=== PATIENT | female | born 1990 | race Caucasian/White ===

== ENCOUNTER → 2019-07-06 | Outpatient (CLI) | payer OTHER ==
[~2019-07-06] MED LIST: AMOX500 PO; BUSP10 PO; CEPH500 PO; HYDACE5; HYDACE5 PO; IBUP400; INSLIS75I; LORA2 PO; NAPR500 PO; PENVK500 PO; PROM25 PO; RXAMOX500 PO; SULTRIDS PO; Ultram50 MG PO; Valium5 MG PO
== END | disposition home or self-care (01) ==
LOC: LAB 19:40 → LAB SHORT 19:40
PROVIDERS: Physician Assistant Medical
DX: R10.2 Pelvic and perineal pain (principal)
CPT/HCPCS: G0145

== ENCOUNTER → 2019-10-19 | Outpatient (CLI) | payer OTHER ==
[2019-10-22 10:07] LABS: CHLAMYDIA BY NAA Negative (Negative); GONOCOCCUS BY NAA Negative (Negative); TRICH VAG BY NAA Negative (Negative)
== END ==
LOC: LAB 17:24 → LAB SHORT 17:24
PROVIDERS: Registered Nurse Community Health
DX: Z20.2 Contact with and (suspected) exposure to infections with a predominantly sexual mode of transmission (principal)
CPT/HCPCS: 87491; 87591; 87661

== ENCOUNTER 2021-02-21 04:43 | Emergency (ER) | payer OTHER ==
[~2021-02-21] VITALS: Ht 165.1 cm; Wt 101.2 kg
[2021-02-21] MEDS ORDERED: PRENATAL TABLE1 EAC2 PO (04:57)
[2021-02-21 06:41] LABS: Source, Urine Clean Catch
[2021-02-21 06:46] LABS: BASOPHILS ABSOLUTE AUTO 0.03 K/mm3 (0.00-0.23); BASOPHILS PERCENT AUTO 0 % (0-2); EOSINOPHILS ABSOLUTE AUTO 0.11 K/mm3 (0.00-0.68); EOSINOPHILS PERCENT AUTO 1 % (0-6); Hematocrit 34.7 % (33.0-51.0); Hemoglobin 11.6 g/dL (11.5-16.0); IMMATURE GRAN ABSOLUTE AUTO 0.16 K/mm3 (0.00-0.10); IMMATURE GRAN PERCENT AUTO 2 % (0-1); LYMPHOCYTES ABSOLUTE AUTO 1.72 K/mm3 (0.84-5.20); LYMPHOCYTES PERCENT AUTO 17 % (21-46); MONOCYTES ABSOLUTE AUTO 0.55 K/mm3 (0.16-1.47); MONOCYTES PERCENT AUTO 5 % (4-13); Mean Corpuscular HGB 30.1 pg (26.0-34.0); Mean Corpuscular HGB Conc 33.4 g/dL (31.5-36.5); Mean Corpuscular Volume 90 fL (80-100); Mean Platelet Volume 10.2 fL (9.1-12.4); NEUTROPHILS ABSOLUTE AUTO 7.78 K/mm3 (1.96-9.15); NEUTROPHILS PERCENT AUTO 75 % (41-73); Platelet Count 207 K/mm3 (150-400); RDW Coefficient Variation 13.6 % (11.7-14.2); RDW Standard Deviation 44.5 fL (35.1-46.3); Red Blood Cell Count 3.86 M/mm3 (3.80-5.20); White Blood Cell Count 10.35 K/mm3 (4.00-11.30)
[2021-02-21 06:49] LABS: Appearance, Urine Clear (Clear); Bilirubin, Urine Neg (Neg); Blood, Urine Neg (Neg); Color, Urine Yellow (P-Yellow); Glucose Qualitative, Urine Neg (Neg); Ketones, Urine Neg (Neg); Leukocyte Esterase, Urine 1+ (Neg); Nitrite, Urine Neg (Neg); Protein, Urine Neg (Neg); Urobilinogen, Urine NORM (Normal)
[2021-02-21 07:05] LABS: Squamous Epithelial Cells Mod /hpf (Few)
[2021-02-21 07:06] LABS: Red Blood Cells, Urine 0-2 /hpf (0-2)
[2021-02-21 07:07] LABS: Bacteria Mod /hpf
[2021-02-21 07:07] LABS: Alanine Aminotransfer (ALT/SGP 14 U/L (12-78); Albumin, Blood 2.8 g/dL (3.4-5.0); Albumin/Globulin Ratio 0.7 (0.8-1.8); Alk Phos 92 U/L (50-136); Anion Gap 8 mmol/L (6-16); Aspartate Aminotrans (AST/SGOT 11 U/L (12-37); Bilirubin, Total 0.2 mg/dL (0.1-1.0); Blood Urea Nitrogen 7 mg/dL (8-24); Bun/Creatinine Ratio 12.9 (12.0-20.0); CO2, Blood 22 mmol/L (21-32); Calcium, Blood 8.7 mg/dL (8.5-10.1); Chloride, Blood 106 mmol/L (98-108); Creatinine, Blood 0.54 mg/dL (0.40-1.00); Globulin, Blood 3.9 g/dL (2.2-4.0); Glomerular Filtration Rate >60 (60-); Glucose, Blood 108 mg/dL (70-99); Potassium, Blood 3.7 mmol/L (3.5-5.5); Sodium, Blood 136 mmol/L (136-145); Total Protein, Blood 6.7 g/dL (6.4-8.2)
== END 2021-02-21 07:37 | disposition home or self-care (01) ==
LOC: ER 04:43
PROVIDERS: Emergency Medicine
DX: O99.891 Other specified diseases and conditions complicating pregnancy (principal); R20.2 Paresthesia of skin; Z3A.29 29 weeks gestation of pregnancy
CPT/HCPCS: 36415; 80053; 81001; 82950; 85025; 87086; 99284

== ENCOUNTER → 2021-04-15 | Outpatient (CLI) | payer OTHER ==
[~2021-04-15] MED LIST changes: +DOCU100 PO; +IBU800 MG PO; +PRENATAL TABLE1 EAC2 PO; +Percocet 5-3251 EACH PO
== END | disposition home or self-care (01) ==
LOC: LAB 15:00 → LAB SHORT 15:00
DX: Z34.83 Encounter for supervision of other normal pregnancy, third trimester (principal); Z3A.36 36 weeks gestation of pregnancy
CPT/HCPCS: 87081; 87150

== ENCOUNTER 2021-05-02 08:21 | Inpatient (IN) | payer OTHER ==
[~2021-05-02] VITALS: Ht 165.1 cm; Wt 105.0 kg
[~2021-05-02 08:21] MED LIST changes: -DOCU100 PO; -IBU800 MG PO; -Percocet 5-3251 EACH PO
[2021-05-02 08:39] LABS: BASOPHILS ABSOLUTE AUTO 0.05 K/mm3 (0.00-0.23); BASOPHILS PERCENT AUTO 0 % (0-2); EOSINOPHILS ABSOLUTE AUTO 0.11 K/mm3 (0.00-0.68); EOSINOPHILS PERCENT AUTO 1 % (0-6); Hematocrit 41.9 % (33.0-51.0); Hemoglobin 14.4 g/dL (11.5-16.0); IMMATURE GRAN ABSOLUTE AUTO 0.13 K/mm3 (0.00-0.10); IMMATURE GRAN PERCENT AUTO 1 % (0-1); LYMPHOCYTES ABSOLUTE AUTO 2.75 K/mm3 (0.84-5.20); LYMPHOCYTES PERCENT AUTO 17 % (21-46); MONOCYTES ABSOLUTE AUTO 1.04 K/mm3 (0.16-1.47); MONOCYTES PERCENT AUTO 6 % (4-13); Mean Corpuscular HGB 29.8 pg (26.0-34.0); Mean Corpuscular HGB Conc 34.4 g/dL (31.5-36.5); Mean Corpuscular Volume 87 fL (80-100); Mean Platelet Volume 10.6 fL (9.1-12.4); NEUTROPHILS ABSOLUTE AUTO 12.17 K/mm3 (1.96-9.15); NEUTROPHILS PERCENT AUTO 75 % (41-73); Platelet Count 238 K/mm3 (150-400); RDW Coefficient Variation 13.7 % (11.7-14.2); RDW Standard Deviation 43.3 fL (35.1-46.3); Red Blood Cell Count 4.84 M/mm3 (3.80-5.20); White Blood Cell Count 16.25 K/mm3 (4.00-11.30)
--- NOTE | 2021-05-02 10:31 | NUR ---
05/02/21 1031 Becca Dixon PRIMARY SECTION FOR BREECH. VIABLE BABY BOY DELIVERED AT 1003. APGARS 9/9. WEIGHT 4710 GRAMS. LENGTH 22 INCHES. HEAD 15 INCHES. CHEST 14.5 INCHES
[2021-05-03 05:57] LABS: BASOPHILS ABSOLUTE AUTO 0.03 K/mm3 (0.00-0.23); BASOPHILS PERCENT AUTO 0 % (0-2); EOSINOPHILS ABSOLUTE AUTO 0.12 K/mm3 (0.00-0.68); EOSINOPHILS PERCENT AUTO 1 % (0-6); Hematocrit 32.6 % (33.0-51.0); Hemoglobin 10.8 g/dL (11.5-16.0); IMMATURE GRAN ABSOLUTE AUTO 0.08 K/mm3 (0.00-0.10); IMMATURE GRAN PERCENT AUTO 1 % (0-1); LYMPHOCYTES ABSOLUTE AUTO 1.84 K/mm3 (0.84-5.20); LYMPHOCYTES PERCENT AUTO 19 % (21-46); MONOCYTES ABSOLUTE AUTO 0.69 K/mm3 (0.16-1.47); MONOCYTES PERCENT AUTO 7 % (4-13); Mean Corpuscular HGB 29.7 pg (26.0-34.0); Mean Corpuscular HGB Conc 33.1 g/dL (31.5-36.5); Mean Corpuscular Volume 90 fL (80-100); Mean Platelet Volume 10.5 fL (9.1-12.4); NEUTROPHILS ABSOLUTE AUTO 7.03 K/mm3 (1.96-9.15); NEUTROPHILS PERCENT AUTO 72 % (41-73); Platelet Count 166 K/mm3 (150-400); RDW Coefficient Variation 14.3 % (11.7-14.2); RDW Standard Deviation 46.6 fL (35.1-46.3); Red Blood Cell Count 3.64 M/mm3 (3.80-5.20); White Blood Cell Count 9.79 K/mm3 (4.00-11.30)
--- NOTE | 2021-05-04 03:04 | NUR ---
RESPIRATORY NOTE: PT STATES THAT SHE FELT LIKE SHE NEED TO COUGH BUT CAN'T CLEAR UP AND FLEM. SHE STATES THAT IT FEELS LIKE SHE HAS THICK MUCUS THAT'S SHE CAN'T GET OUT. LUNGS CLEAR IN ALL LOBES. PT ENCOURGED TO TAKE A DEEP BREATH AND COUGH USING PILLOW TO GUARD ABDOMEN. PT STATES THAT ITS NOT WORKING AND IT TOO PAINFUL. RN OFFERED PAIN MEDICATION BUT PT DECLINED. RN INSTRUCTED PT TO USE INSINTIVE SPIROMETER. ALSO ORDER OBTAINED FOR FLUTTER VAULVE AND MUCINEX. PT STATES THAT SHE IS ABLE TO COUGH UP SMALL AMOUNTS BUT NOT CLEAR THE MUCUS ALL THE WAY.
[2021-05-04] MEDS ORDERED: IBU800 MG PO (11:06)
[2021-05-04] MEDS ORDERED: Percocet 5-3251 EACH PO (11:07)
[2021-05-04] MEDS ORDERED: DOCU100 PO (11:07)
--- NOTE | 2021-05-04 11:21 | NUR ---
PT AND ARE DC'D HOME WITH WRITTEN RX AND DISCHARGE INSTRUCTIONS. BABY BANDS MATCHED AND PARENTS ACKNOWLEDGE CORRECT BABY.
== END 2021-05-04 11:30 | disposition home or self-care (01) | DRG 788 ==
LOC: BC 08:21
PROVIDERS: ADMIT Obstetrics & Gynecology
PROC: 10D00Z1 Extraction of Products of Conception, Low, Open Approach (ICD-10-PCS; principal; 2021-05-02 09:30)
DX: O32.8XX0 Maternal care for other malpresentation of fetus, not applicable or unspecified (principal); Z3A.39 39 weeks gestation of pregnancy; Z37.0 Single live birth; O99.214 Obesity complicating childbirth; E66.9 Obesity, unspecified; O99.344 Other mental disorders complicating childbirth; O99.824 Streptococcus B carrier state complicating childbirth; F53.1 Puerperal psychosis; F32.9 Major depressive disorder, single episode, unspecified; F41.9 Anxiety disorder, unspecified; Z14.1 Cystic fibrosis carrier; Z20.822 Contact with and (suspected) exposure to COVID-19
CPT/HCPCS: 36415; 85025; 86850; 86900; 86901; A9270; J0694; J1885; J2370; J2405; J2590; J2765; J3010; J7120; U0004

== ENCOUNTER 2021-06-15 07:05 | Inpatient (IN) | payer OTHER ==
[~2021-06-15] VITALS: Ht 165.1 cm; Wt 94.8 kg
[~2021-06-15 07:05] MED LIST changes: +DOCU100 PO; +IBU800 MG PO; +Percocet 5-3251 EACH PO
[2021-06-15] MEDS ORDERED: ASCO500 PO (07:19)
[2021-06-15 07:47] LABS: BASOPHILS ABSOLUTE AUTO 0.03 K/mm3 (0.00-0.23); BASOPHILS PERCENT AUTO 0 % (0-2); EOSINOPHILS ABSOLUTE AUTO 0.13 K/mm3 (0.00-0.68); EOSINOPHILS PERCENT AUTO 2 % (0-6); Hematocrit 41.9 % (33.0-51.0); Hemoglobin 13.7 g/dL (11.5-16.0); IMMATURE GRAN ABSOLUTE AUTO 0.03 K/mm3 (0.00-0.10); IMMATURE GRAN PERCENT AUTO 0 % (0-1); LYMPHOCYTES ABSOLUTE AUTO 2.36 K/mm3 (0.84-5.20); LYMPHOCYTES PERCENT AUTO 27 % (21-46); MONOCYTES ABSOLUTE AUTO 0.42 K/mm3 (0.16-1.47); MONOCYTES PERCENT AUTO 5 % (4-13); Mean Corpuscular HGB 28.7 pg (26.0-34.0); Mean Corpuscular HGB Conc 32.7 g/dL (31.5-36.5); Mean Corpuscular Volume 88 fL (80-100); Mean Platelet Volume 9.8 fL (9.1-12.4); NEUTROPHILS ABSOLUTE AUTO 5.88 K/mm3 (1.96-9.15); NEUTROPHILS PERCENT AUTO 67 % (41-73); Platelet Count 264 K/mm3 (150-400); RDW Coefficient Variation 12.7 % (11.7-14.2); RDW Standard Deviation 40.9 fL (35.1-46.3); Red Blood Cell Count 4.78 M/mm3 (3.80-5.20); White Blood Cell Count 8.85 K/mm3 (4.00-11.30)
[2021-06-15 07:56] LABS: Source, Urine Clean Catch
[2021-06-15 08:10] LABS: Leukocyte Esterase, Urine 2+ (Neg); Nitrite, Urine Neg (Neg); Protein, Urine Neg (Neg); Specific Gravity, Urine 1.015 (1.003-1.022)
[2021-06-15 08:11] LABS: Appearance, Urine Clear (Clear); Bilirubin, Urine Neg (Neg); Blood, Urine 5+ (Neg); Color, Urine Yellow (P-Yellow); Glucose Qualitative, Urine Neg (Neg); Ketones, Urine Neg (Neg); Urobilinogen, Urine NORM (Normal)
[2021-06-15 08:12] LABS: Alanine Aminotransfer (ALT/SGP 114 U/L (12-78); Albumin, Blood 3.7 g/dL (3.4-5.0); Albumin/Globulin Ratio 0.8 (0.8-1.8); Alk Phos 137 U/L (50-136); Anion Gap 5 mmol/L (6-16); Aspartate Aminotrans (AST/SGOT 120 U/L (12-37); Bilirubin, Total 0.7 mg/dL (0.1-1.0); Blood Urea Nitrogen 18 mg/dL (8-24); CO2, Blood 29 mmol/L (21-32); Calcium, Blood 9.5 mg/dL (8.5-10.1); Chloride, Blood 104 mmol/L (98-108); Creatinine, Blood 0.86 mg/dL (0.40-1.00); Globulin, Blood 4.6 g/dL (2.2-4.0); Glomerular Filtration Rate >60 (60-); Glucose, Blood 108 mg/dL (70-99); Potassium, Blood 4.1 mmol/L (3.5-5.5); Sodium, Blood 138 mmol/L (136-145); Total Protein, Blood 8.3 g/dL (6.4-8.2)
[2021-06-15 08:13] LABS: Bacteria Few /hpf; Squamous Epithelial Cells Mod /hpf (Few)
[2021-06-15 09:53] LABS: SARS-Cov-2 (COVID-19) PCR, MMC NEGATIVE (NEGATIVE)
--- NOTE | 2021-06-15 11:48 | NUR ---
06/15/21 1148 Cristy Law PT ON SCHEDULED ANTIBIOTICS.
--- NOTE | 2021-06-15 14:34 | NUR ---
PT ARRIVED TO THE ROOM AT APPROXIMATELY 1246. PT AWAKE AND ORIENTED. DENIES PAIN AND NAUSEA. VSS. WILL MONITOR UNTIL REPORT TO ONCOMING RN.
[2021-06-15] MEDS ORDERED: OXYC10TA19 PO (16:16)
--- NOTE | 2021-06-15 17:00 | NUR ---
DISCHARGE PT PROVIDED WITH WRITTEN AND VERBAL DISCHARGE INSTRUCTIONS, SHE VERBALIZED UNDERSTANDING. PT PROVIDED WITH PRESCRIPTION FOR PAIN MEDICATION. PT GIVEN ABD BINDER FOR COMFORT. PAIN MANAGED, ABLE TO AMBULATE AND TOLERATING PO PRIOR TO DISCHARGE. PT AMBULATED OUT WITHOUT ASSISTANCE.
== END 2021-06-15 17:02 | disposition home or self-care (01) | DRG 419 ==
LOC: ER 07:05 → SURS 08:50
PROVIDERS: Emergency Medicine; ADMIT Surgery
PROC: 0FT44ZZ Resection of Gallbladder, Percutaneous Endoscopic Approach (ICD-10-PCS; principal; 2021-06-15 11:15)
DX: K80.10 Calculus of gallbladder with chronic cholecystitis without obstruction (principal); Z20.822 Contact with and (suspected) exposure to COVID-19; K21.9 Gastro-esophageal reflux disease without esophagitis; E66.9 Obesity, unspecified; Z87.891 Personal history of nicotine dependence; Z68.34 Body mass index [BMI] 34.0-34.9, adult
CPT/HCPCS: 36415; 76705; 80053; 81001; 81025; 83690; 85025; 87086; 88304; 96374; 96375; 99285-25; A9270; J1100; J1170; J2250; J2405; J2543; J2704; J3010; J7030; J7120; U0004

== ENCOUNTER 2021-08-08 15:10 | Emergency (ER) | payer OTHER ==
[~2021-08-08] VITALS: Ht 195.6 cm; Wt 95.2 kg
[~2021-08-08 15:10] MED LIST changes: +ASCO500 PO; +OXYC10TA19 PO
[2021-08-08] MEDS ORDERED: IBUP400 PO (15:49)
[2021-08-08] MEDS ORDERED: CYCL10 PO (15:49)
== END 2021-08-08 16:11 | disposition home or self-care (01) ==
LOC: ER 15:10
DX: R20.2 Paresthesia of skin (principal); Z87.891 Personal history of nicotine dependence
CPT/HCPCS: 99283; A9270

== ENCOUNTER 2021-08-09 14:31 | Emergency (ER) | payer OTHER ==
[~2021-08-09] VITALS: Ht 165.1 cm; Wt 95.2 kg
[~2021-08-09 14:31] MED LIST changes: +CYCL10 PO; +IBUP400 PO
== END 2021-08-09 18:55 | disposition home or self-care (01) ==
LOC: ER 14:31
DX: G62.9 Polyneuropathy, unspecified (principal); Z87.891 Personal history of nicotine dependence
CPT/HCPCS: 72131; 81025; 99284-25

== ENCOUNTER 2022-07-06 17:55 | Emergency (ER) | payer OTHER ==
[~2022-07-06] VITALS: Ht 165.1 cm; Wt 99.8 kg
[2022-07-06 18:36] LABS: BASOPHILS ABSOLUTE AUTO 0.04 K/mm3 (0.00-0.23); BASOPHILS PERCENT AUTO 0 % (0-2); EOSINOPHILS ABSOLUTE AUTO 0.16 K/mm3 (0.00-0.68); EOSINOPHILS PERCENT AUTO 2 % (0-6); Hematocrit 41.9 % (33.0-51.0); Hemoglobin 14.3 g/dL (11.5-16.0); IMMATURE GRAN ABSOLUTE AUTO 0.04 K/mm3 (0.00-0.10); IMMATURE GRAN PERCENT AUTO 0 % (0-1); LYMPHOCYTES ABSOLUTE AUTO 3.73 K/mm3 (0.84-5.20); LYMPHOCYTES PERCENT AUTO 39 % (21-46); MONOCYTES PERCENT AUTO 5 % (4-13); Mean Corpuscular HGB 29.9 pg (26.0-34.0); Mean Corpuscular HGB Conc 34.1 g/dL (31.5-36.5); Mean Corpuscular Volume 88 fL (80-100); Mean Platelet Volume 9.5 fL (9.1-12.4); NEUTROPHILS ABSOLUTE AUTO 5.19 K/mm3 (1.96-9.15); NEUTROPHILS PERCENT AUTO 54 % (41-73); Platelet Count 349 K/mm3 (150-400); RDW Coefficient Variation 12.5 % (11.7-14.2); Red Blood Cell Count 4.79 M/mm3 (3.80-5.20); White Blood Cell Count 9.66 K/mm3 (4.00-11.30)
[2022-07-06 18:57] LABS: Albumin/Globulin Ratio 1.1 (0.8-1.8); Bilirubin, Total 0.3 mg/dL (0.1-1.0); Bun/Creatinine Ratio 16.1 (12.0-20.0); Calcium, Blood 9.1 mg/dL (8.5-10.1); Creatinine, Blood 0.81 mg/dL (0.40-1.00); Globulin, Blood 3.7 g/dL (2.2-4.0); Potassium, Blood 3.6 mmol/L (3.5-5.5); Total Protein, Blood 7.7 g/dL (6.4-8.2)
== END 2022-07-06 19:28 | disposition left against medical advice (07) ==
LOC: ER 17:55
PROVIDERS: Student in an Organized Health Care Education/Training Program
DX: Z53.21 Procedure and treatment not carried out due to patient leaving prior to being seen by health care provider (principal)
CPT/HCPCS: 36415; 71045; 80053; 84484; 85025; 93005; 93010

== ENCOUNTER 2023-08-13 02:48 | Day surgery (SDC) | payer OTHER ==
[2023-08-13] VITALS (7 sets, daily range): BP systolic 108–150; BP diastolic 73–100
[2023-08-13] MEDS ORDERED: LORA.5 PO (08:03)
[2023-08-13] MEDS ORDERED: BACL10 PO (08:03)
[2023-08-13] MEDS ORDERED: GABA300 (08:03)
[2023-08-13] MEDS ORDERED: THERA-D2000 UNIT PO (08:03)
[2023-08-13] MEDS ORDERED: HAIR, SKIN AND1 EAC3 PO (08:04)
== END 2023-08-13 11:23 | disposition home or self-care (01) ==
LOC: ATC 02:48
DX: G35 Multiple sclerosis (principal)
CPT/HCPCS: 96365; 96366; 96375; A9270; J2350; J2930; J7050

== ENCOUNTER 2023-08-28 03:55 | Day surgery (SDC) | payer OTHER ==
[2023-08-28] VITALS (7 sets, daily range): BP systolic 125–145; BP diastolic 69–94
[~2023-08-28 03:55] MED LIST changes: +BACL10 PO; +GABA300; +HAIR, SKIN AND1 EAC3 PO; +LORA.5 PO; +THERA-D2000 UNIT PO
--- NOTE | 2023-08-28 09:44 | NUR ---
PT REPORTS AFTER LAST INFUSION HER BODY WAS FLUSHED AND WARM LASTING ONE DAY. PROVIDER IS AWARE OF THIS AND ASKED PT TO NOTIFY [facility] STAFF.
== END 2023-08-28 12:59 | disposition home or self-care (01) ==
LOC: ATC 03:55
DX: G35 Multiple sclerosis (principal)
CPT/HCPCS: 96365; 96366; 96375; A9270; J2350; J2930; J7050

== ENCOUNTER → 2023-09-17 | Outpatient (CLI) | payer OTHER ==
[2023-09-17 15:55] LABS: BASOPHILS ABSOLUTE AUTO 0.04 K/mm3 (0.00-0.23); BASOPHILS PERCENT AUTO 1 % (0-2); EOSINOPHILS ABSOLUTE AUTO 0.13 K/mm3 (0.00-0.68); EOSINOPHILS PERCENT AUTO 2 % (0-6); Hematocrit 42.1 % (33.0-51.0); Hemoglobin 14.3 g/dL (11.5-16.0); IMMATURE GRAN ABSOLUTE AUTO 0.06 K/mm3 (0.00-0.10); IMMATURE GRAN PERCENT AUTO 1 % (0-1); LYMPHOCYTES ABSOLUTE AUTO 2.29 K/mm3 (0.84-5.20); LYMPHOCYTES PERCENT AUTO 26 % (21-46); MONOCYTES ABSOLUTE AUTO 0.47 K/mm3 (0.16-1.47); MONOCYTES PERCENT AUTO 5 % (4-13); Mean Corpuscular HGB 30.6 pg (26.0-34.0); Mean Corpuscular Volume 90 fL (80-100); Mean Platelet Volume 11.9 fL (9.1-12.4); NEUTROPHILS ABSOLUTE AUTO 5.83 K/mm3 (1.96-9.15); NEUTROPHILS PERCENT AUTO 66 % (41-73); Platelet Count 269 K/mm3 (150-400); RDW Coefficient Variation 13.2 % (11.7-14.2); RDW Standard Deviation 43.8 fL (35.1-46.3); Red Blood Cell Count 4.67 M/mm3 (3.80-5.20); White Blood Cell Count 8.82 K/mm3 (4.00-11.30)
[2023-09-17 17:09] LABS: CHOL/HDL RATIO 4.7; Cholesterol 236 mg/dL (50-200); HDL Cholesterol 50 mg/dL (>39); LDL/HDL RATIO 2.6; Low Density Lipoprotein Chol 130 mg/dL (0-110); Triglycerides 280 mg/dL (30-140); Very Low Density Lipoprot Chol 56 mg/dL (6-28)
[2023-09-20 05:11] LABS: HEMOGLOBIN A1C 5.3 % (4.8-5.6)
[2023-09-20 08:11] LABS: A/G RATIO 1.6 (1.2-2.2); BILIRUBIN, TOTAL 0.4 mg/dL (0.0-1.2); CALCIUM, SERUM 9.6 mg/dL (8.7-10.2); CREATININE, SERUM 0.82 mg/dL (0.57-1.00); GLOBULIN, TOTAL 2.9 g/dL (1.5-4.5); POTASSIUM, SERUM 4.5 mmol/L (3.5-5.2); PROTEIN, TOTAL, SERUM 7.6 g/dL (6.0-8.5)
== END | disposition home or self-care (01) ==
LOC: LAB 14:13 → LAB SHORT 14:13
PROVIDERS: Family Medicine
DX: Z51.81 Encounter for therapeutic drug level monitoring (principal); Z79.899 Other long term (current) drug therapy
CPT/HCPCS: 80053; 80061; 82306; 83036; 84443; 85025

== ENCOUNTER 2024-02-26 06:25 | Day surgery (SDC) | payer OTHER ==
[~2024-02-26 06:25] MED LIST changes: +OCRELIZUMAB 600 MG in NS 500 ML IV SCH
[2024-02-26] MEDS ORDERED: MethylPREDNISolone Sod Succ 125 MG Vial IV SCH (06:40)
[2024-02-26] MEDS ORDERED: Acetaminophen 325 MG TABLET PO SCH (06:40)
[2024-02-26] MEDS ORDERED: DiphenhydrAMINE HCL 25 MG Cap PO SCH (06:40)
[2024-02-26 07:40] VITALS: BP 139/80
[2024-02-26 08:55] VITALS: BP 129/61
[2024-02-26 09:25] VITALS: BP 138/90
[2024-02-26 09:56] VITALS: BP 116/93
[2024-02-26 10:25] VITALS: BP 127/68
[2024-02-26] MEDS ORDERED: DiphenhydrAMINE HCl 50 MG/ML 1ML Vial ONE (10:27)
[2024-02-26] MEDS ORDERED: DiphenhydrAMINE HCl 50 MG/ML 1ML Vial IV SCH (10:30)
--- NOTE | 2024-02-26 10:42 | NUR ---
1025: PT C/O ITCHY EARS, SNEEZING AND SOME NUMBNESS TO HER THROAT. "I FEEL LIKE I'M GETTING A COLD ALL OF THE SUDDEN." INFUSION STOPPED. VS TAKEN, SEE EMR. 1037: BENEDRYL 25 MG IV DILUTED WITH NS AND GIVEN. PT REPORTED THAT HER LEFT FOREARM IS SORE AFTER BENEDRYL GIVEN. WRAPPED WITH WARM BLANKET ADN PT STATES RELIEF. 1040: SNEEZING STOPPED AND PT REPORTS FEELING BETTER. INFUSION RESTARTED AT THE PREVIOUS RATE PER PT REQUEST.
== END 2024-02-26 12:17 | disposition home or self-care (01) ==
LOC: ATC 06:25
DX: G35 Multiple sclerosis (principal)
CPT/HCPCS: 96365; 96366; 96375; A9270; J1200; J2350; J2919; J7040

== ENCOUNTER → 2024-03-23 | Outpatient (CLI) | payer OTHER ==
[~2024-03-23] MED LIST changes: -OCRELIZUMAB 600 MG in NS 500 ML IV SCH
[2024-03-26 09:30] LABS: APTIMA MEDIA TYPE Urine; C. TRACHOMATIS BY TMA Negative (Negative); N. GONORRHOEAE BY TMA Negative (Negative); SPECIMEN SOURCE Urine
== END ==
LOC: LAB 18:14 → LAB SHORT 18:14
PROVIDERS: Family Medicine
DX: O09.521 Supervision of elderly multigravida, first trimester (principal); Z3A.01 Less than 8 weeks gestation of pregnancy
CPT/HCPCS: 87086; 87491; 87591

== ENCOUNTER → 2024-05-12 | Outpatient (CLI) | payer OTHER ==
[2024-05-12 14:49] LABS: BASOPHILS ABSOLUTE AUTO 0.04 K/mm3 (0.00-0.23); BASOPHILS PERCENT AUTO 0 % (0-2); EOSINOPHILS ABSOLUTE AUTO 0.12 K/mm3 (0.00-0.68); EOSINOPHILS PERCENT AUTO 1 % (0-6); Hematocrit 38.2 % (33.0-51.0); IMMATURE GRAN ABSOLUTE AUTO 0.06 K/mm3 (0.00-0.10); IMMATURE GRAN PERCENT AUTO 1 % (0-1); LYMPHOCYTES ABSOLUTE AUTO 2.04 K/mm3 (0.84-5.20); LYMPHOCYTES PERCENT AUTO 19 % (21-46); MONOCYTES ABSOLUTE AUTO 0.65 K/mm3 (0.16-1.47); MONOCYTES PERCENT AUTO 6 % (4-13); Mean Corpuscular Volume 88 fL (80-100); Mean Platelet Volume 11.3 fL (9.1-12.4); NEUTROPHILS ABSOLUTE AUTO 7.97 K/mm3 (1.96-9.15); NEUTROPHILS PERCENT AUTO 73 % (41-73); Platelet Count 271 K/mm3 (150-400); RDW Standard Deviation 42.1 fL (35.1-46.3); Red Blood Cell Count 4.33 M/mm3 (3.80-5.20); White Blood Cell Count 10.88 K/mm3 (4.00-11.30)
[2024-05-14 05:36] LABS: HSV 1 GLYCOPROTEIN G AB, IGG 0.16 IV (<=0.89); HSV 2 GLYCOPROTEIN G AB, IGG 0.09 IV (<=0.89)
[2024-05-14 09:16] LABS: HIV 1,2 COMBO ANTIGEN/ANTIBODY Negative (Negative)
[2024-05-14 13:10] LABS: HEPATITIS B SURFACE ANTIGEN Negative (Negative)
== END ==
LOC: LAB 13:27 → LAB SHORT 13:27
PROVIDERS: Family Medicine
DX: O09.512 Supervision of elderly primigravida, second trimester (principal); Z3A.13 13 weeks gestation of pregnancy
CPT/HCPCS: 84443; 86695; 86696; 87340; 87389

== ENCOUNTER → 2024-08-24 | Outpatient (CLI) | payer OTHER ==
[2024-08-24 13:03] LABS: BASOPHILS ABSOLUTE AUTO 0.03 K/mm3 (0.00-0.23); BASOPHILS PERCENT AUTO 0 % (0-2); EOSINOPHILS ABSOLUTE AUTO 0.11 K/mm3 (0.00-0.68); EOSINOPHILS PERCENT AUTO 1 % (0-6); Hematocrit 36.8 % (33.0-51.0); IMMATURE GRAN ABSOLUTE AUTO 0.12 K/mm3 (0.00-0.10); IMMATURE GRAN PERCENT AUTO 1 % (0-1); LYMPHOCYTES ABSOLUTE AUTO 1.88 K/mm3 (0.84-5.20); LYMPHOCYTES PERCENT AUTO 17 % (21-46); MONOCYTES ABSOLUTE AUTO 0.46 K/mm3 (0.16-1.47); MONOCYTES PERCENT AUTO 4 % (4-13); Mean Corpuscular HGB 30.5 pg (26.0-34.0); Mean Corpuscular HGB Conc 32.6 g/dL (31.5-36.5); Mean Corpuscular Volume 94 fL (80-100); Mean Platelet Volume 10.8 fL (9.1-12.4); NEUTROPHILS ABSOLUTE AUTO 8.21 K/mm3 (1.96-9.15); NEUTROPHILS PERCENT AUTO 76 % (41-73); Platelet Count 216 K/mm3 (150-400); RDW Coefficient Variation 13.5 % (11.7-14.2); RDW Standard Deviation 46.5 fL (35.1-46.3); Red Blood Cell Count 3.93 M/mm3 (3.80-5.20); White Blood Cell Count 10.81 K/mm3 (4.00-11.30)
== END | disposition home or self-care (01) ==
LOC: LAB 10:00 → LAB SHORT 10:00
PROVIDERS: Family Medicine
DX: O09.511 Supervision of elderly primigravida, first trimester (principal)
CPT/HCPCS: 85025

== ENCOUNTER → 2024-08-25 | Outpatient (CLI) | payer OTHER | LOC: LAB 17:45 → LAB SHORT 17:45 | DX: O09.513 Supervision of elderly primigravida, third trimester (principal); Z3A.00 Weeks of gestation of pregnancy not specified | CPT/HCPCS: 87086 ==

== ENCOUNTER → 2024-09-22 | Outpatient (CLI) | payer OTHER ==
[2024-09-22 18:25] LABS: BASOPHILS ABSOLUTE AUTO 0.02 K/mm3 (0.00-0.23); BASOPHILS PERCENT AUTO 0 % (0-2); EOSINOPHILS ABSOLUTE AUTO 0.11 K/mm3 (0.00-0.68); EOSINOPHILS PERCENT AUTO 1 % (0-6); Hematocrit 36.8 % (33.0-51.0); Hemoglobin 12.4 g/dL (11.5-16.0); IMMATURE GRAN ABSOLUTE AUTO 0.15 K/mm3 (0.00-0.10); IMMATURE GRAN PERCENT AUTO 1 % (0-1); LYMPHOCYTES ABSOLUTE AUTO 1.72 K/mm3 (0.84-5.20); LYMPHOCYTES PERCENT AUTO 16 % (21-46); MONOCYTES ABSOLUTE AUTO 0.81 K/mm3 (0.16-1.47); MONOCYTES PERCENT AUTO 7 % (4-13); Mean Corpuscular HGB 30.5 pg (26.0-34.0); Mean Corpuscular HGB Conc 33.7 g/dL (31.5-36.5); Mean Corpuscular Volume 90 fL (80-100); Mean Platelet Volume 10.8 fL (9.1-12.4); NEUTROPHILS ABSOLUTE AUTO 8.22 K/mm3 (1.96-9.15); NEUTROPHILS PERCENT AUTO 75 % (41-73); Platelet Count 215 K/mm3 (150-400); RDW Coefficient Variation 14.4 % (11.7-14.2); RDW Standard Deviation 47.4 fL (35.1-46.3); Red Blood Cell Count 4.07 M/mm3 (3.80-5.20); White Blood Cell Count 11.03 K/mm3 (4.00-11.30)
[2024-09-22 19:44] LABS: Albumin, Blood 2.8 g/dL (3.4-5.0); Albumin/Globulin Ratio 0.7 (0.8-1.8); Bilirubin, Total 0.3 mg/dL (0.1-1.0); Bun/Creatinine Ratio 17.9 (12.0-20.0); Calcium, Blood 9.9 mg/dL (8.5-10.1); Creatinine, Blood 0.56 mg/dL (0.40-1.00); Globulin, Blood 4.1 g/dL (2.2-4.0); Potassium, Blood 3.8 mmol/L (3.5-5.5); Total Protein, Blood 6.9 g/dL (6.4-8.2)
[2024-09-22 20:08] LABS: Protein/Creat Ratio, Ur Random 0.3
== END ==
LOC: LAB SHORT 17:20 → LAB 17:20
PROVIDERS: Family Medicine
DX: O09.511 Supervision of elderly primigravida, first trimester (principal)
CPT/HCPCS: 80053; 82570; 84156; 85025

== ENCOUNTER → 2024-09-28 | Outpatient (CLI) | payer OTHER ==
[2024-09-28 11:49] LABS: Protein, Urine Quantitative 25.1 mg/dL (0.0-11.9)
== END ==
LOC: LAB SHORT 09:55 → LAB 09:55
PROVIDERS: Family Medicine
DX: O09.511 Supervision of elderly primigravida, first trimester (principal); Z3A.00 Weeks of gestation of pregnancy not specified
CPT/HCPCS: 84156

== ENCOUNTER → 2024-10-26 | Outpatient (CLI) | payer OTHER ==
[2024-10-27 00:11] LABS: Protein/Creat Ratio, Ur Random 0.3
== END ==
LOC: LAB 17:10 → LAB SHORT 17:10
PROVIDERS: Family Medicine
DX: O09.513 Supervision of elderly primigravida, third trimester (principal); O16.3 Unspecified maternal hypertension, third trimester
CPT/HCPCS: 82570; 84156

== ENCOUNTER 2024-10-28 12:55 | Observation (INO) | payer OTHER ==
[~2024-10-28] VITALS: Ht 165.1 cm; Wt 108.0 kg
[2024-10-28 13:17] VITALS: BP 137/76
[2024-10-28 13:33] VITALS: BP 139/88
[2024-10-28 13:47] VITALS: BP 138/87
[2024-10-28 13:51] LABS: BASOPHILS ABSOLUTE AUTO 0.03 K/mm3 (0.00-0.23); BASOPHILS PERCENT AUTO 0 % (0-2); EOSINOPHILS ABSOLUTE AUTO 0.08 K/mm3 (0.00-0.68); EOSINOPHILS PERCENT AUTO 1 % (0-6); Hematocrit 36.3 % (33.0-51.0); Hemoglobin 12.6 g/dL (11.5-16.0); IMMATURE GRAN ABSOLUTE AUTO 0.07 K/mm3 (0.00-0.10); IMMATURE GRAN PERCENT AUTO 1 % (0-1); LYMPHOCYTES ABSOLUTE AUTO 1.93 K/mm3 (0.84-5.20); LYMPHOCYTES PERCENT AUTO 18 % (21-46); MONOCYTES ABSOLUTE AUTO 0.61 K/mm3 (0.16-1.47); MONOCYTES PERCENT AUTO 6 % (4-13); Mean Corpuscular HGB 30.3 pg (26.0-34.0); Mean Corpuscular HGB Conc 34.7 g/dL (31.5-36.5); Mean Corpuscular Volume 87 fL (80-100); Mean Platelet Volume 10.6 fL (9.1-12.4); NEUTROPHILS ABSOLUTE AUTO 7.88 K/mm3 (1.96-9.15); NEUTROPHILS PERCENT AUTO 74 % (41-73); Platelet Count 254 K/mm3 (150-400); RDW Coefficient Variation 14.1 % (11.7-14.2); RDW Standard Deviation 44.9 fL (35.1-46.3); Red Blood Cell Count 4.16 M/mm3 (3.80-5.20)
[2024-10-28] MEDS ORDERED: Acetaminophen 325 MG TABLET PO PRN (14:15)
[2024-10-28] MEDS ORDERED: Ondansetron 8 MG SoluTab MM PRN (14:15)
[2024-10-28] MEDS ORDERED: HyDROXyzine HCl 25 MG Tab PO PRN (14:15)
[2024-10-28] MEDS ORDERED: OxyCODONE HCL 5 MG TAB PO PRN (14:15)
[2024-10-28 14:27] LABS: Albumin, Blood 2.6 g/dL (3.4-5.0); Albumin/Globulin Ratio 0.6 (0.8-1.8); Bilirubin, Total 0.4 mg/dL (0.1-1.0); Bun/Creatinine Ratio 14.4 (12.0-20.0); Calcium, Blood 8.8 mg/dL (8.5-10.1); Creatinine, Blood 0.56 mg/dL (0.40-1.00); Globulin, Blood 4.2 g/dL (2.2-4.0); Potassium, Blood 3.8 mmol/L (3.5-5.5); Total Protein, Blood 6.8 g/dL (6.4-8.2)
[2024-10-28] MEDS ORDERED: MetFORMIN HCl 500 mg PO SCH (17:00)
[2024-10-28 17:55] VITALS: BP 139/73
[2024-10-28 20:09] VITALS: BP 130/85
[2024-10-29 02:14] VITALS: BP 129/74
[2024-10-29] MEDS ORDERED: Calcium Carbonate 500 MG Tab Chew PO PRN (03:20)
[2024-10-29 07:48] VITALS: BP 139/76
--- NOTE | 2024-10-29 13:36 | NUR ---
PATIENT D/C HOME. REVIWED D/C INSTRUCTIONS AND DISCUSSED SIGNS AND SYMPTOMS OF PREECLAMPSIA. PT DENIES QUESTIONS AT THIS TIME AND PLANS TO COME BACK ON THURSDAY FOR SCHEDULED CSECTION.
--- NOTE | 2024-10-31 11:58 | NUR ---
10/31/24 Sonny8 Ilsa Magana BABY GIRL @ 1137 CORD BLOOD TO FBA RN CORD SEGMENT TO RT
[2024-10-31 12:35] VITALS: BP 128/96
== END 2024-10-29 12:17 | disposition home or self-care (01) ==
LOC: BC 12:55 → OBS 12:55 → BC 13:37
PROVIDERS: ADMIT Family Medicine
DX: O24.419 Gestational diabetes mellitus in pregnancy, unspecified control (principal); Z3A.38 38 weeks gestation of pregnancy
CPT/HCPCS: 59025; 80053; 82947; 85025; 99213; A9270; G0378

== ENCOUNTER → 2024-11-30 | Outpatient (CLI) | payer OTHER ==
[2024-11-30 16:00] LABS: BASOPHILS ABSOLUTE AUTO 0.05 K/mm3 (0.00-0.23); BASOPHILS PERCENT AUTO 1 % (0-2); EOSINOPHILS ABSOLUTE AUTO 0.26 K/mm3 (0.00-0.68); EOSINOPHILS PERCENT AUTO 3 % (0-6); Hematocrit 44.8 % (33.0-51.0); Hemoglobin 14.9 g/dL (11.5-16.0); IMMATURE GRAN ABSOLUTE AUTO 0.02 K/mm3 (0.00-0.10); IMMATURE GRAN PERCENT AUTO 0 % (0-1); LYMPHOCYTES ABSOLUTE AUTO 2.34 K/mm3 (0.84-5.20); LYMPHOCYTES PERCENT AUTO 30 % (21-46); MONOCYTES ABSOLUTE AUTO 0.41 K/mm3 (0.16-1.47); MONOCYTES PERCENT AUTO 5 % (4-13); Mean Corpuscular HGB Conc 33.3 g/dL (31.5-36.5); Mean Corpuscular Volume 87 fL (80-100); Mean Platelet Volume 12.3 fL (9.1-12.4); NEUTROPHILS ABSOLUTE AUTO 4.64 K/mm3 (1.96-9.15); NEUTROPHILS PERCENT AUTO 60 % (41-73); Platelet Count 222 K/mm3 (150-400); RDW Coefficient Variation 12.9 % (11.7-14.2); RDW Standard Deviation 41.3 fL (35.1-46.3); Red Blood Cell Count 5.13 M/mm3 (3.80-5.20); White Blood Cell Count 7.72 K/mm3 (4.00-11.30)
[2024-11-30 16:58] LABS: Alanine Aminotransfer (ALT/SGP 51 U/L (12-78); Albumin, Blood 3.7 g/dL (3.4-5.0); Albumin/Globulin Ratio 0.9 (0.8-1.8); Alk Phos 114 U/L (50-136); Anion Gap 11 mmol/L (3-11); Aspartate Aminotrans (AST/SGOT 23 U/L (12-37); Bilirubin, Total 0.6 mg/dL (0.1-1.0); Blood Urea Nitrogen 15 mg/dL (8-24); Bun/Creatinine Ratio 18.4 (12.0-20.0); CHOL/HDL RATIO 5.3; CO2, Blood 27 mmol/L (21-32); Calcium, Blood 8.9 mg/dL (8.5-10.1); Chloride, Blood 102 mmol/L (98-108); Cholesterol 303 mg/dL (50-200); Creatinine, Blood 0.82 mg/dL (0.40-1.00); Globulin, Blood 4.2 g/dL (2.2-4.0); Glomerular Filtration Rate 95 (60-); Glucose, Blood 98 mg/dL (70-99); HDL Cholesterol 57 mg/dL (>39); Low Density Lipoprotein Chol 174 mg/dL (0-110); Potassium, Blood 4.2 mmol/L (3.5-5.5); Sodium, Blood 136 mmol/L (136-145); Total Protein, Blood 7.9 g/dL (6.4-8.2); Triglycerides 362 mg/dL (30-140); Very Low Density Lipoprot Chol 72 mg/dL (6-28)
== END ==
LOC: LAB SHORT 14:49 → LAB 14:49
PROVIDERS: Family Medicine
DX: Z51.81 Encounter for therapeutic drug level monitoring (principal); Z79.899 Other long term (current) drug therapy
CPT/HCPCS: 80053; 80061; 82306; 83036; 84443; 85025